=== PATIENT | female | born 1935 | race Caucasian/White ===

== ENCOUNTER 2017-04-17 19:37 | Emergency (ER) | payer MEDICARE ==
[~2017-04-17] VITALS: Ht 162.6 cm; Wt 72.2 kg
[2017-04-17] MEDS ORDERED: NORCO, ANEXSIA 5/325MG TABLET (HYDROcodone/ACETAMINOPHEN) PO ONE (22:00)
[2017-04-17] MEDS ORDERED: NORCO 5/325MG TABLET (BULK FOR ED) PO ONE (22:00)
[2017-04-17] MEDS ORDERED: METHOCARBAMOL 500 MG TAB PO ONE ×2 (22:00)
== END 2017-04-17 22:40 | disposition home or self-care (01) ==
LOC: M ED 19:37
DX: M54.32 Sciatica, left side (principal); Z88.5 Allergy status to narcotic agent